=== PATIENT | male | born 1965 | race Caucasian/White ===

== ENCOUNTER 2017-01-11 15:43 | Emergency (ER) | payer SELFPAY ==
[~2017-01-11] VITALS: Ht 177.8 cm; Wt 85.0 kg
[~2017-01-11 15:43] MED LIST: COMBAER INH; CYCL5TAB PO; DUONI; IPRAAER IN; RANI150; RANI150T PO; VENTAER INH; Z.0.NO CURRENT MEDS
[2017-01-11 15:53] VITALS: BP 134/89; PULSE 94; RESP 15; TEMP 97.8; O2SAT 99
== END 2017-01-11 17:40 | disposition left against medical advice (07) ==
LOC: NEDAMB 15:43
DX: F10.129 Alcohol abuse with intoxication, unspecified (principal)
CPT/HCPCS: 99281